=== PATIENT | female | born 1980 | race Caucasian/White ===

== ENCOUNTER 2018-03-26 06:49 | Day surgery (SDC) | payer OTHER, SELFPAY ==
[2018-03-18 15:56] VITALS: BMI 28.0
[2018-03-26] VITALS (11 sets, daily range): BP systolic 104–125; BP diastolic 68–79; PULSE 74–85; RESP 14–16; TEMP 36.2–36.8; O2SAT 93–99; BMI 26.9
--- NOTE | 2018-03-26 | PATH_ITS ---
[facility] Accession Number: [id number] . 01 Material submitted: . PILONIDAL CYST . 02 Diagnosis: Skin and Subcutaneous Tissue Designated Pilonidal Cyst: Extensive dermal and subcutaneous scarring with focal foreign body reaction to entrapped hair shaft suggestive of an old pilonidal cyst (see microscopic description). MRV/03/30/2018 . 02 Electronically signed: . Florin Morel MD, Pathologist NPI- [id number] . 01 Gross description: . Received in formalin, labeled pilonidal cyst, is an unoriented ellipse of leone-pink smooth and shiny skin with underlying tissue (6.2 x 1.8 x 1.8 cm) containing a firm linear puckered area (4.5 cm) involving the peripheral resection margin located 1.2 cm from the closest tip. The underlying tissue is fatty and focally fibrous, which coincides with the overlying puckered skin. The resection margin is inked black. Hr Advisor serial sections are submitted in cassettes A1-A4. ([id number]) /[facility] . 02 Microscopic: . Sections are of skin and subcutaneous tissue from an area designated as a pilonidal cyst. The squamous epithelium on the surface is unremarkable. In the dermis and in the subcutaneous tissue there is extensive fibrous scarring. In one area there is a focus of foreign body reaction secondary to an entrapped hair shaft. This could represent remnants of an old pilonidal cyst which has undergone extensive scarring although it is not diagnostic. There is no atypia or evidence for malignancy. . 02 Pathologist provided ICD-10: L05.91 . 02 CPT . 862377 Performed at: 01 [place], [place] [id number] MD Ricci Burns MD Phone: [phone] Performed at: 02 [facility] [address] [place] [id number] MD Nohemi Hanna MD Phone: [phone]
--- NOTE | 2018-03-26 07:15 | SUR.OPER ---
Prone on padded OR bed, head in foam head support, gel chest rolls, gel pad under knees, pillow under lower legs, toes free of pressure, arms secured on padded arm boards at <90 degrees abduction. Safety belt at thigh.
[2018-03-26] MEDS: LACTATED RINGERS 1,000 ML 42 ML IV (07:40)
--- NOTE | 2018-03-26 07:46 | PM.HP.1 ---
History of Present Illness Date Patient Seen: 03/26/18 Time Patient Seen: 07:41 Chief complaint: pilonidal cyst excision [id number] Narrative: Patient is a woman here for excision of pilonidal cyst Patient History Medical History Pilonidal cyst (Acute) Deviated septum (Chronic) Surgical History H/O nasal septoplasty (Acute) History of excision of pilonidal cyst (Resolved) Family & Social History Family History: Reviewed 03/26/18 by Vidal Dubose MD Social History: household members spouse Tobacco & Substance use: Smoking Status Current every day smoker alcohol intake never Substance Use Type does not use Meds Home Medications Medication Instructions Recorded Confirmed Type cephalexin 500 mg PO TID 03/26/18 03/26/18 History mupirocin 1 applic TOPICAL TID 03/26/18 03/26/18 History Allergies Allergy/AdvReac Type Severity Reaction Status Date / Time Sulfa (Sulfonamide Allergy Unknown itching Verified 03/26/18 07:06 Antibiotics) Review of Systems Review of Systems All systems reviewed & are unremarkable except as noted in HPI and below Exam Vital Signs (past 8 hours): - 03/26/18 07:33 Temperature 97.3 F L Pulse Rate 79 Respiratory Rate 15 Blood Pressure 114/79 Pulse Oximetry 98 Oxygen Delivery Method Room Air Narrative Exam Narrative: No apparent distress. Lungs clear heart regular rate and rhythm no murmur gallop abdomen soft nontender without mass area over the coccyx and just inferior no inflammation at this time. No drainage or open wounds. Assessment & Plan Plan: Assessment/Plan Narrative: Patient with a longstanding pilonidal cyst. Here for excision. Probable primary closure over drain. I have discussed various options with the patient will decide how to proceed as the operation un folds. Risks of bleeding infection recurrence wound opening all discussed with her. She appears to understand wishes to proceed
--- NOTE | 2018-03-26 07:50 | PM.PREOP ---
Pre-operative Note Interval Note History & Physical reviewed/Exam performed by Physician: Yes Changes to H&P: No
[2018-03-26] MEDS: CEFAZOLIN 2 GM/100 ML FROZ.PIGGY IV (07:53)
[2018-03-26] MEDS: CLINDAMYCIN 900 MG/50 ML PIGGYBACK 50 MG IV (08:06)
[2018-03-26] MEDS: BUPIVACAINE 0.5% W/ EPI (PF) VIAL 30 ML INJ (08:39)
--- NOTE | 2018-03-26 09:37 | PM.OP.1 ---
Operative Date/Time/Diagnoses Date of procedure: 03/26/18 Time of procedure: 09:30 Pre-op diagnosis: Recurrent pilonidal cyst Post-op diagnosis: same Procedure & Clinicians Procedure: Excision with movement/transfer of tissue to place the scar off the midline Same procedure as scheduled: Yes Indications: Recurrent pilonidal cyst Surgeon: Vidal Dubose Click Yes if Unassisted: Yes Anesthesia Type: General Operative Notes Findings: Multiple sinus tracts. Minimal inflammation. Cyst cavity was not violated to the best of my knowledge. Closure Type: primary Specimen(s): other ( cyst) Implants & Drains: Fifteen Lithuanian Raturo drain Estimated Blood Loss (mL): 5 Blood products transfused: none Procedure in detail: Patient is placed aura-knife prone on the operating room table after undergoing general endotracheal anesthesia. She was prepped and draped in the usual fashion. Buttock cheeks were plug taped apart. Local anesthetic was infiltrated. Incision was made 2 cm to the left of the midline cleft in elliptical fashion to include the midline and the cyst cavity and all of the sinus tracts. It was carried into the subcu. Using cautery I carefully removed the entire cyst including the tissue above the coccyx. It did not appear that I entered the cavity. The tissue was removed. Meticulous hemostasis was maintained throughout. Local anesthetic was infiltrated. An incision was made about a cm below the dermis on though right hand side to allow the tissue to moved. A Arturo drain 15 mm Lithuanian was placed in the base and brought out above the upper end of the incision. It was secured with a 3 0 nylon suture. The deep tissues were closed over with a interrupted 2 0 Vicryl. The subcu was closed with interrupted 2 0 Vicryl bringing the skin edges in near approximation.(the tape holding the cheeks apart had been released taking all tension off the wound for closure). The skin edges were reapproximated with a running 2 0 Prolene that ran down 1 side and up the other tying at the beginning and the end. A few interrupted 2 0 Prolenes were placed in the skin to reapproximate it carefully. This was also to reinforce the running line. The skin was covered with exofin and Steri-Strips. Dressing was applied and the patient was placed back on the stretcher extubated and taken recovery room good condition. Complications: none Condition: stable Disposition: PACU Plan for aftercare: f/u in office
--- NOTE | 2018-03-26 09:43 | SUR.PHASEI ---
pt arrived to PACU at 0933 she was thrashing around clearly not awake but thrashing and trying to roll over. RN attached monitors to pt and melt down furnace operatorjohnny Espino and myself along with Dr. Almodovar. changed patients dressing and reinforced her drain. pt calmed down and went back to sleep. No adverse affect noted to pt. she is currently in prone posistion and can follow commands . she is mostly sleeping at present time.
[2018-03-26] MEDS: fentaNYL 100 MCG/2 ML INJ 50 MCG IV (09:54)
--- NOTE | 2018-03-26 10:30 | SUR.PHASEII ---
Gabriela cdi. JOEY drain contained very small amt of medium red fluid. Pt lying on her abd, denied pain, drowsy. Call light within reach.
--- NOTE | 2018-03-26 11:17 | SUR.PHASEII ---
No drainage output to JOEY drain.
== END 2018-03-26 11:15 | disposition home or self-care (01) ==
PROVIDERS: Visit Provider Specialist
PROC: (CPT 11772; principal; 2018-03-26 07:45)
DX: L05.91 Pilonidal cyst without abscess (principal); F17.210 Nicotine dependence, cigarettes, uncomplicated
CPT/HCPCS: 11772; 88304; J0330; J0690; J1100; J2250; J2405; J2704; J3010

== ENCOUNTER 2019-06-17 15:38 | Emergency (ER) | payer OTHER, SELFPAY ==
[2019-06-17 15:47] VITALS: BP 130/73; PULSE 100; RESP 20; TEMP 36.5; O2SAT 100; BMI 29.9
--- NOTE | 2019-06-17 16:12 | ED_ITS ---
HPI - Skin/Abscess/Foreign Bdy General Chief complaint: Skin/Abscess/Foreign Body Stated complaint: states infected cyst on tailbone Time Seen by Provider: 06/17/19 15:52 Source: patient and family Mode of arrival: Ambulatory History of Present Illness HPI narrative: 38-year-old woman with a pilonidal cyst and no other significant medical history presents with exacerbation of pilonidal cyst. She has had 1 exacerbation 1 surgical revision and 1 I and D all related to the pilonidal cyst. The most recent intervention was about a year ago with an I& D. She has been having increasing pain and fullness to the area for about a week. She and her are being read applied to [place] in 10 days and would like help with treatment now and recommendations on how to proceed and light of a cross-country move within 10 days. Related Data Previous Rx's Medication Instructions Recorded amitriptyline 10 mg tablet 10 mg PO BEDTIME #30 tab 04/21/19 amitriptyline 10 mg tablet 20 mg PO BEDTIME #60 tab 05/10/19 cephalexin 500 mg PO Q8H #21 cap 06/17/19 oxycodone-acetaminophen [Percocet] 1 tab PO Q6H PRN #20 tab 06/17/19 Allergies Allergy/AdvReac Type Severity Reaction Status Date / Time Sulfa (Sulfonamide Allergy Unknown itching Verified 06/17/19 15:48 Antibiotics) Review of Systems Review of Systems Narrative: Denies ? fever ? cough ? cold ? chills ? chest pain ? orthopnea ? wheezing ? abdominal pain ? change to bowel or bladder habits ? nausea vomiting ? skin changes ? rashes Patient History Medical History Deviated septum (Chronic) Pilonidal cyst (Acute) Surgical History H/O nasal septoplasty (Acute) History of excision of pilonidal cyst (Resolved) Social History marital status: household members: spouse occupational status: employed Smoking Status: Current every day smoker alcohol intake: never substance use type: does not use Smoking Status: Current every day smoker Substance Use Type: does not use Exam Narrative Exam Narrative: General: Healthy appearing, in no acute distress. Able to give a complete and coherent history. Well-nourished well-developed HEENT: Moist mucous membranes, n Neck: No JVD, supple Respiratory: Lungs are clear to auscultation, no wheezing no rales no rhonchi. Full and symmetrical air movement Cardiac: Regular rate and rhythm no murmurs no bruits Abdomen: Soft nontender good bowel tones, no flank pain Skin: Warm and dry, no rashes. Developing pilonidal abscess not yet draining minimal surrounding erythema. Neurologic: Grossly neurologically intact with no obvious asymmetries or abnorm alities Extremities: No trauma, well perfused Psych: Cooperative, appropriate insight and affect Initial Vital Signs Initial Vital Signs: Vital Signs Temperature 97.7 F 06/17/19 15:47 Pulse Rate 100 H 06/17/19 15:47 Respiratory Rate 20 06/17/19 15:47 Blood Pressure 130/73 06/17/19 15:47 Pulse Oximetry 100 06/17/19 15:47 Procedures Abscess I/D I&D #1: Site: other (Pilonidal cyst) Local Anesthetic: bupivacaine 0.5% and with epi Amount of anesthesia used (mL): 10 Technique: incised with #11 blade Amount of fluid expressed (mL): 10 Irrigation: No Packing used?: plain Course Orders Ordered: Discontinued Medications Bupivacaine HCl/Epinephrine Bitart (Sensorcaine 0.5% W/ Epi (Pf)) 5 ml SUBCUT NOW ONE Stop: 06/17/19 16:11 Last Admin: 06/17/19 16:48 Dose: 5 ml Documented by: ARGENTINA Ibuprofen (Advil) 400 mg PO NOW ONE Stop: 06/17/19 16:55 Last Admin: 06/17/19 16:59 Dose: 400 mg Documented by: BRANDY Oxycodone/Acetaminophen (Percocet 5/325) 1 tab PO NOW ONE Stop: 06/17/19 16:55 Last Admin: 06/17/19 17:01 Dose: 1 tab Documented by: BRANDY Vital Signs Vital signs: Vital Signs - 8 hr 06/17/19 15:47 Temperature 97.7 F Pulse Rate 100 H Respiratory Rate 20 Blood Pressure 130/73 Pulse Oximetry 100 Discharge Plan Departure Patient Disposition: Home Clinical Impression: Cyst, pilonidal, with abscess Cellulitis Qualifiers: Site of cellulitis: buttock Qualified Code(s): L03.317 - Cellulitis of buttock Instructions: Pilonidal Cyst Activity Restrictions/Additional Instructions: Thank you for coming in today I was able to drain your pilonidal abscess. There is a moderate amount of purulent material that was removed and a culture of this was obtained. I am concerned that your developing a bit of cellulitis as well and will recommend 7 days of Keflex, an antibiotic. It is okay to take a shower, simply pat the area dry. On Friday take the packing out while you were in the shower. You will likely need it a dressing to continue as I do expect some drainage. Using 400 mg of ibuprofen (2 fpun-thp-vnutgar pills) and 1 Tylenol every 6 hours can be very helpful in controlling pain. For severe pain, use ibuprofen and a single Percocet in combination every 6 hours. Both prescriptions have been electronically sent to [facility] pharmacy. Good luck with your moved to [place]. When she do get their you will need to be seen by a surgeon to see if additional care or definitive surgery is needed. I hope you heal quickly. Prescriptions: New cephalexin 500 mg capsule 500 mg PO Q8H Qty: 21 RF: 0 oxycodone-acetaminophen [Percocet] 5-325 mg tablet 1 tab PO Q6H PRN (Reason: pain) Qty: 20 RF: 0 No Action amitriptyline 10 mg tablet 20 mg PO BEDTIME Qty: 60 RF: 0 amitriptyline 10 mg tablet 10 mg PO BEDTIME Qty: 30 RF: 0 Referrals: Katiuska Carbajal DO [Primary Care Provider] -
[2019-06-17] MEDS: BUPIVACAINE 0.5% W/ EPI (PF) 30 ML VIAL 5 ML SUBCUT (16:48)
[2019-06-17] MEDS: IBUPROFEN 400 MG TABLET PO (16:59)
[2019-06-17] MEDS: OXYCODONE/ACETAMINOPHEN 5/325 TABLET 1 TAB PO (17:01)
[2019-06-17 17:45] VITALS: BP 124/71; PULSE 87; RESP 16; O2SAT 97
== END 2019-06-17 17:46 | disposition home or self-care (01) ==
PROVIDERS: Emergency Provider Emergency Medicine; PCP Family Medicine
DX: L05.01 Pilonidal cyst with abscess (principal); L03.317 Cellulitis of buttock
CPT/HCPCS: 10060; 87070; 87075; 87205; 99283